=== PATIENT | female | born 1950 | race Caucasian/White ===

== ENCOUNTER → 2024-04-28 | Outpatient (CLI) | payer MEDICARE, BC ==
--- NOTE | 2024-04-28 10:20 | MR ---
EXAMINATION TYPE: MR shoulder RT wo con DATE OF EXAM: 04/28/2024 COMPARISON: None HISTORY: Rt shoulder pain, Decreased ROM TECHNIQUE: Multiplanar, multisequence imaging of the right shoulder is performed without contrast. FINDINGS: There is no bone contusion or fracture. 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 There is a subacromial spur. 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 This combination of findings results in marked shoulder impingement. There is a glenohumeral joint effusion and there is marked subacromial and subdeltoid bursitis. There is a complete full-thickness tear of the supraspinatus tendon with retraction of the musculoten dinous junction. There is marked thinning of the infraspinatus tendon with probable small intrasubsta nce tears. There is tendinosis and partial tears of the subscapularis tendon without retraction. There is thicke nicolas of the middle glenohumeral ligament. The biceps tendon is normal in position within the bicipita l groove and the biceps anchor appears to be attached but there is tear is involving the superior and anterior cartilaginous labrum. IMPRESSION: 1. Marked shoulder impingement secondary to chronic rotator cuff tear involving the supraspinatus ten don with superior subluxation of glenohumeral joint, marked degeneration of the AC joint and a subacr omial spur. 2. Marked thinning with intrasubstance tears of the infraspinatus tendon. 3. Tendinosis with intrasubstance tears of the subscapularis tendon. 4. Subacromial and subdeltoid bursitis. 5. Superior and anterior labral tears. 6. Thickening of the middle glenohumeral ligament. [facility], , 04/28/2024 10:18 AM
--- NOTE | 2024-04-28 16:03 | NM ---
EXAMINATION TYPE: NM bone 3 phase DATE OF EXAM: 04/28/2024 COMPARISON: No radiographic correlation available CLINICAL INDICATION: Female, 74 years old with history of Z96.652 presence of artificial knee; left k nee pain after injury. Technique: Triple phase bone scintigraphy was performed following the injection of 25.2 mCi Tc 99m MD P. Immediate images and 4 hours post injection images acquired. Imaging centered at the bilateral kn ees. FINDINGS: Flow images may have slightly greater activity on the right. Pleural images show some photopenia at the left knee in keeping with patient's knee arthroplasty. The re is some focal increased activity in the expected region of the medial tibial plateau. Delayed scan shows corresponding increased activity at the medial tibial plateau adjacent to the phot openic area corresponding to a medial compartmental arthroplasty. IMPRESSION: Focal increased activity at the tibial component of the left knee medial compartmental ar throplasty. Unable to exclude loosening based on these findings. [facility], , 04/28/2024 4:01 PM
== END | disposition home or self-care (01) ==
LOC: RADNMMAIN 06:48
PROVIDERS: ATTEND Orthopaedic Surgery
DX: M75.41 Impingement syndrome of right shoulder (principal); M75.111 Incomplete rotator cuff tear or rupture of right shoulder, not specified as traumatic; M19.011 Primary osteoarthritis, right shoulder; M67.813 Other specified disorders of tendon, right shoulder; M75.51 Bursitis of right shoulder; Z96.652 Presence of left artificial knee joint
CPT/HCPCS: 78315